=== PATIENT | female | born 1935 | race Caucasian/White ===

== ENCOUNTER 2016-04-10 13:22 | Emergency (ER) | payer OTHER, MEDICARE ==
[~2016-04-10] VITALS: Ht 158.8 cm; Wt 41.7 kg
[2016-04-10 13:29] VITALS: BP 172/85
--- NOTE | 2016-04-10 14:17 | CT SCAN REPORT ---
EXAMINATION: CT HEAD WITHOUT CONTRAST CLINICAL INFORMATION: 80-year-old female incurring head trauma by falling on sidewalk. No loss of consciousness. Patient on Xarelto. COMPARISON: None TECHNIQUE: Contiguous axial imaging was performed from the skull base to vertex without intravenous administration of contrast. DLP: 601 mGy-cm FINDINGS: There is no evidence of acute intracranial hemorrhage or territorial infarction. No abnormal mass effect or midline shift is seen. Etienne to white matter differentiation is well preserved. No extra-axial fluid collections are identified. The prominent ventricles are age-appropriate. There is moderate excess of CSF surrounding the cerebral hemispheres. This is also age-related atrophy. 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 Posterior fossa is normal. The osseous structures and soft tissues are normal. The mastoid air cells and visualized portions of the paranasal sinuses are well aerated. IMPRESSION: No acute intracranial pathology.
--- NOTE | 2016-04-10 14:39 | ED MVC/FALL/TRAUMA COMPLAINT ---
History of Present Illness General Chief Complaint: Facial or Head Injury Stated Complaint: FACIAL ABRASION S/P FALL, BRUISING Source: patient Exam Limitations: no limitations Vital Signs & Intake/Output Vital Signs & Intake/Output Vital Signs Date Time Temp Pulse Resp B/P Pulse O2 O2 Flow FiO2 Ox Delivery Rate 04/10 1329 97.1 92 18 172/85 96 Room Air Allergies Coded Allergies: MDX - PCN (penicillin) (PCN (PENICILLIN)) (Intermediate, HIVES 09/04/11) MDX - SULFA (sulfonamide) (SULFA (SULFONAMIDE)) (Intermediate, GI UPSET 09/04/11 ) Triage Note: PT STATES THAT SHE IS ON XARELTO AND THAT THIS AM SHE TRIPPED AND FELL HITTING HER HEAD ON SIDE WALK, STATES THAT SHE HAD A LOT OF BLEEDING FROM HER NOSE. DENIES LOC Triage Nurses Notes Reviewed? yes HPI: 80-year-old female had a mechanical trip and fall that occurred around 9:30 this morning when she was picking up garbage outside. She tripped over her feet and fell onto her left side and struck the left side of her head and her nose on the ground. She had moderate amount of bleeding from her nose and small abrasions noted to the left forehead region. She did not lose consciousness. Her nosebleed stopped with direct pressure. She has had no treatment thus far, there are no modifying factors, she is asymptomatic at this time. She has no headaches, no confusion, no nausea no vomiting, no neck pain, no other extremity pain or injury, no coordination or balance issues. She is on xeralto and has been on it for many years. Family is with her and states that she is acting normally (GWEN GRISSOM) Past History Travel History Traveled to [place] past 21 day No Medical History Any Pertinent Medical History? see below for history Neurological: NONE EENT: NONE Cardiovascular: AFIB, hypertension Respiratory: NONE Gastrointestinal: NONE Hepatic: NONE Renal: NONE Musculoskeletal: NONE Psychiatric: NONE Endocrine: NONE Blood Disorders: NONE Cancer(s): NONE Surgical History Surgical History: non-contributory Psychosocial History What is your primary language Paraguayan Tobacco Use: Never used ETOH Use: denies use Illicit Drug Use: denies illicit drug use Family History Hx Contributory? No (GWEN GRISSOM) Review of Systems Review of Systems Constitutional: Reports: see HPI. Eyes: Reports: no symptoms. Ears, Nose, Throat, Mouth: Reports: see HPI. Respiratory: Reports: no symptoms. Cardiovascular: Reports: no symptoms. Gastrointestinal/Abdominal: Reports: no symptoms. Genitourinary: Reports: no symptoms. Musculoskeletal: Reports: no symptoms. Skin: Reports: no symptoms. Neurological/Psychological: Reports: see HPI. All Other Systems: Reviewed and Negative (GWEN GRISSOM) Physical Exam Physical Exam General Appearance: well developed/nourished Comments: Well-developed well-nourished no apparent distress. HEENT: Pupils equally round and reactive to light, extraocular motion intact, . Tympanic membranes normal appearing, negative Mejia sign, negative raccoon eyes There is mild swelling and ecchymosis to the bridge of the nose and dried blood noted in the left nares. Small abrasion noted to the forehead lateral aspect. No swelling of the forehead or orbital region. No inferior orbital tenderness. Gait is within normal limits, coordination is intact, cranial nerves II through XII grossly intact Neck: Supple, no lymphadenopathy Back: Nontender Respiratory: No respiratory distress Extremities: No edema, full range of motion Neuro: Alert and oriented x3 Psych: Mood affect normal, normal memory normal judgment. Skin: Warm and dry, no rash on exposed skin Core Measures ACS in differential dx? No Severe Sepsis Present: No Septic Shock Present: No (GWEN GRISSOM) Progress Differential Diagnosis: aoritic dissection, abd injury, C/T/L spine injury, ext injury, ICH, pelvis injury, pnemothorax, spinal cord injury Plan of Care: CT head negative, patient is asymptomatic, she is stable for discharge home. Discussed with her and her family they're to return with any concerns of symptoms of headaches, nausea, vomiting or confusion. Diagnostic Imaging: Viewed by Me: CT Scan. Discussed w/RAD: CT Scan. Radiology Impression: PATIENT: SAMMY CORTEZ PRESENT AGE: 80 PATIENT ACCOUNT NO: [id number] : 34 LOCATION: [facility] ORDERING PHYSICIAN: MARIEL MCNAMARA DO SERVICE DATE: 04/10/16-9137 EXAM TYPE: CAT - CT HEAD WO IV CONTRAST EXAMINATION: CT HEAD WITHOUT CONTRAST CLINICAL INFORMATION: 80-year-old female incurring head trauma by falling on sidewalk. No loss of consciousness. Patient on Xarelto. COMPARISON: None TECHNIQUE: Contiguous axial imaging was performed from the skull base to vertex without intravenous administration of contrast. DLP: 601 mGy-cm FINDINGS: There is no evidence of acute intracranial hemorrhage or territorial infarction. No abnormal mass effect or midline shift is seen. Etienne to white matter differentiation is well preserved. No extra-axial fluid collections are identified. The prominent ventricles are age-appropriate. There is moderate excess of CSF surrounding the cerebral hemispheres. This is also age-related atrophy. 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 Posterior fossa is normal. The osseous structures and soft tissues are normal. The mastoid air cells and visualized portions of the paranasal sinuses are well aerated. IMPRESSION: No acute intracranial pathology. DICTATED BY: ILDEFONSO MOHR MD DATE/TIME DICTATED:04/10/161403 TELETYPESETTER OPERATOR:SCOTT DATE/TIME TRANSCRIBED:04/10/16 Comments: katherine Mcnamara (GWEN GRISSOM) Departure Departure Disposition: HOME OR SELF CARE Condition: Stable Clinical Impression Primary Impression: Head injury Qualifiers: Encounter type: initial encounter Qualified Code: S09.90XA - Unspecified injury of head, initial encounter Secondary Impressions: Nasal contusion Qualifiers: Encounter type: initial encounter Qualified Code: S00.33XA - Contusion of nose, initial encounter Referrals: DIANE CUMMINS MD (PCP/Family) Additional Instructions: Return to the emergency room if you're feeling worsening or severe headaches, nausea, vomiting, confusion. You may take Tylenol for pain. Follow-up with your doctor if you're not feeling any better in the next 3-5 days. Departure Forms: Customer Survey General Discharge Information (GWEN GRISSOM) PA/VACUUM PAN OPERATOR Co-Sign Statement Statement: ED Attending supervision documentation- [] I saw and evaluated the patient. I have also reviewed all the pertinent lab results and diagnostic results. I agree with the findings and the plan of care as documented in the PA's/VACUUM PAN OPERATOR's documentation. [X] I have reviewed the ED Record and agree with the PA's/VACUUM PAN OPERATOR's documentation. [] Additions or exceptions (if any) to the PAs/VACUUM PAN OPERATOR's note and plan are summarized below: [] (MARIEL MCNAMARA DO) ED Attending Observation Initial Observation Note: I have seen and personally examined SAMMY CORTEZ on 04/10/16 at 1450. I agree with the current emergency department documentation. The disposition (admission or discharge) is uncertain at this time, she needs a period of observation for the following reason(s): The ED Nurse caring for this patient has been personally informed as to what the patient is being observed for. (DAJUAN MANCERA,GWEN)
== END 2016-04-10 14:58 ==
LOC: ERH 13:22
DX: S00.33XA Contusion of nose, initial encounter (principal); S09.90XA Unspecified injury of head, initial encounter; W18.09XA Striking against other object with subsequent fall, initial encounter